=== PATIENT | male | born 1985 | race American Indian/Alaskan Native ===

== ENCOUNTER 2017-03-09 16:18 | Emergency (ER) | payer OTHER ==
[2017-03-09] MEDS ORDERED: MARCAINE 0.5% INFILTRATI ONE ×2 (16:34→16:37)
[2017-03-09] MEDS ORDERED: NACL 0.9% IR ONE (16:36)
[2017-03-09] MEDS ORDERED: TRIPLE ANTIBIOTIC TP ONE (16:37)
[2017-03-09 16:38] VITALS: BP 121/76
[2017-03-09] MEDS ORDERED: BOOSTRIX IM ONE (16:40)
--- NOTE | 2017-03-09 16:44 | Emergency Department Report ---
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 PT states he needs TD vaccine. - ROS Review of Systems: + finger pain 06/16 - Exam Vital Signs: Vital Signs 03/09/17 16:34 Temperature 98.4 F Pulse Rate 94 H Respiratory 20 Rate Blood Pressure 121/76 O2 Sat by Pulse 98 Oximetry Physical Exam: L 5th finger distal tip with active bleeding MSE screening note: Focused history and physical exam performed. Due to findings the following was ordered: meds, xr 03/09/17 1709 L 5th finger digital block performed. 4mls of marcaine 0.5% used. ED Disposition for MSE Condition: Stable
--- NOTE | 2017-03-09 17:27 | Emergency Department Report ---
Upper Extremity - HPI Chief Complaint: Extremity Injury, Upper Stated Complaint: FINGER LAC Time Seen by Provider: 03/09/17 16:32 Upper Extremity: Left Little Finger (nail/skin avulsion distal pinky left) Occurred When: Today Mechanism: Hit with Object, Crush Severity: mild Symptoms: Yes Pain with Movement, Yes Deformity (distal nail amputated), Yes Laceration or Abrasion (distal left pinky nail amputated off), No Limited Range of Movement, No Numbness, No Weakness, No Swelling, No Bruising/Ecchymosis Other History: 31-year-old male past medical history none presents with complaint of injury to left distal finger tip pinky finger. Patient states that he was working a fatemeh at work today and fatemeh hit his finger hard lacerating the tip of his finger. Denies any other injuries. Patient unaware of tetanus status. Visible laceration to left distal fingertip, finger nail has been avulsed. oozing blood currently from lac site ED Review of Systems ROS: Stated complaint: FINGER LAC Other details as noted in HPI Constitutional: denies: chills, fever Eyes: denies: eye pain, eye discharge, vision change ENT: denies: ear pain, throat pain Respiratory: denies: cough, shortness of breath, wheezing Cardiovascular: denies: chest pain, palpitations Endocrine: no symptoms reported Gastrointestinal: denies: abdominal pain, nausea, diarrhea Genitourinary: denies: urgency, dysuria Musculoskeletal: denies: back pain, joint swelling, arthralgia Skin: denies: rash, lesions Neurological: denies: headache, weakness, paresthesias Psychiatric: denies: anxiety, depression Hematological/Lymphatic: denies: easy bleeding, easy bruising ED Past Medical Hx - Past Medical History Previous Medical History?: No - Surgical History Past Surgical History?: No - Social History Smoking Status: Current Every Day Smoker Substance Use Type: Alcohol - Medications Home Medications: Home Medications Medication Instructions Recorded Confirmed Last Taken Type Cephalexin [Keflex] 500 mg PO Q12HR #20 cap 03/09/17 Unknown Rx HYDROcodone/APAP 5-325 [[place] 1 each PO Q6HR PRN #15 tablet 03/09/17 Unknown Rx 5/325] Naproxen [Naprosyn TAB] 500 mg PO BID PRN #30 tablet 03/09/17 Unknown Rx Upper Extremity Exam - Exam General: Vital signs noted. No distress. Alert and acting appropriately. Head and Torso: No HEENT Abnormality, No Neck Tenderness, No Chest/Lungs Abnormality, No Abdominal Tenderness, No Back Tenderness Shoulder Exam: Yes Normal Range of Motion in Shoulder, No Shoulder Tenderness, No Clavicle Tenderness, No Shoulder Deformity, No AC Joint Tenderness Arm Exam: No Arm/Humerus Tenderness, No Arm Deformity Elbow: No Elbow Tenderness, No Normal Range of Motion in Elbow, No Elbow Deformity Forearm: No Forearm Tenderness, No Forearm Deformity, No Pain with Pronation, No Pain with Supination Wrist: Yes Normal ROM in Wrist, No Wrist Tenderness, No Wrist Deformity, No Snuffbox Tenderness, No Pain with Axial Thumb Compression Hand: Yes Digit Tenderness (distal left pinky), Yes Normal ROM in Digit(s), No Hand Tenderness, No Hand Deformity, No Digit(s) Deformity, No Tendon Dysfunction CMS Exam: Yes Normal Distal Pulses (cap refill less than 1 second), Yes Normal Capillary Refill, Yes Normal Distal Sensation (pt has full sesnation distal fingertip), No Broken Skin Hand L/R Front: 1 - area of avulsed skin here Hand L/R Back: 1 - avulsion here ED Course Vital Signs 03/09/17 16:34 Temperature 98.4 F Pulse Rate 94 H Respiratory 20 Rate Blood Pressure 121/76 O2 Sat by Pulse 98 Oximetry ED Medical Decision Making - Medical Decision Making A/P: Distal tuft fracture, distal fingernail avulsion, partial distal fingertip amputation, fingertip laceration, fingertip crush 1 -patient given 2 g of Ancef, will discharge patient with course of Keflex 2-[place] for pain control, naproxen when necessary, patient educated on acute wound care 3-site of laceration wrapped with Xeroform gauze. 48-72 hours wound check. 4-I discussed case with the ED attending and also the on-call orthopedic attending Dr. Arroyo. Patient to follow-up in office this week for orthopedic hand consultation. I advised patient that if he experiences worsening pain or persistent bleeding any pus drainage from site or foul odor from site or fever or chills to return to the ED immediately 5- distal fingertip cleaned with iodoform gauze, washed with saline, wrapped with Xeroform gauze and then gauze Cyndi then distal fingertip splint. Critical care attestation.: If time is entered above; I have spent that time in minutes in the direct care of this critically ill patient, excluding procedure time. ED Disposition Clinical Impression: Fingertip avulsion Qualifiers: Encounter type: initial encounter Qualified Code(s): S61.209A - Unspecified open wound of unspecified finger without damage to nail, initial encounter Nail avulsion, finger Qualifiers: Encounter type: initial encounter Qualified Code(s): S61.309A - Unspecified open wound of unspecified finger with damage to nail, initial encounter Fracture of finger of left hand Qualifiers: Encounter type: initial encounter Finger: little finger Fracture type: open Phalanx: distal Fracture alignment: displaced Qualified Code(s): S62.637B - Displaced fracture of distal phalanx of left little finger, initial encounter for open fracture Disposition: - TO HOME OR SELFCARE Is pt being admited?: No Does the pt Need Aspirin: No Condition: Stable Instructions: Laceration (ED), Finger Fracture (ED), Acute Wound Care (ED), Finger Laceration (ED) Additional Instructions: Patient to follow-up with Dr. Arroyo this upcoming or Wednesday, 03/11 or 03/12 Prescriptions: Cephalexin [Keflex] 500 mg PO Q12HR #20 cap HYDROcodone/APAP 5-325 [[place] 5/325] 1 each PO Q6HR PRN #15 tablet PRN Reason: Pain Naproxen [Naprosyn TAB] 500 mg PO BID PRN #30 tablet PRN Reason: Pain Referrals: PRIMARY MD DICKSON [Primary Care Provider] - 3-5 Days [facility] [Provider Group] - 3-5 Days DORIAN ARROYO MD [Staff Physician] - 3-5 Days Forms: Work/School Release Form(ED) Time of Disposition: 19:12
[2017-03-09] MEDS ORDERED: ceFAZolin 2 GM in NACL 0.9% 100 ML IV ONE (18:00)
--- NOTE | 2017-03-09 18:12 | XRay Report ---
FINAL REPORT EXAM: XR FINGER(S) 2+V LT HISTORY: crush injury 5th finger TECHNIQUE: Left 5th finger three views PRIORS: None. FINDINGS: There is comminuted acute traumatic fracture of the tuft distal phalanx of the 5th digit with displaced bony fragments present. There is soft tissue defect. No metallic radiopaque foreign bodies are identified. Joint spaces are within normal limits. No additional acute bony findings. IMPRESSION: Comminuted fracture tuft distal phalanx of the 5th digit with soft tissue defect
== END 2017-03-09 20:00 | disposition home or self-care (01) ==
LOC: ED 16:18
DX: S62.637B Displaced fracture of distal phalanx of left little finger, initial encounter for open fracture (principal); S61.307A Unspecified open wound of left little finger with damage to nail, initial encounter; F17.200 Nicotine dependence, unspecified, uncomplicated; W22.8XXA Striking against or struck by other objects, initial encounter; Y93.9 Activity, unspecified; Y99.9 Unspecified external cause status; Y92.89 Other specified places as the place of occurrence of the external cause
CPT/HCPCS: 29130; 73140; 90471; 90715; 96365; 99283; J0690; A6250

== ENCOUNTER 2018-07-25 12:29 | Emergency (ER) | payer BC, OTHER ==
--- NOTE | 2018-07-25 12:36 | Emergency Department Report ---
Blank Doc - Documentation Documentation: This is a 53-year-old male that presents with dysuria. Denies any penile disc harge. Concerned about STD. Denies any other complaints. This initial assessment diagnostic orders/clinical plan/treatment(s) is/are subject to change based on patient's health status, clinical progression and re- assessment by fellow clinical providers in the ED. Further treatment and workup at subsequent clinical providers discretion. Patient/guardians urged not to elope from ED s their condition may be serious if not clinically assessed and managed. Initial orders include: 1-Patient sent to [facility] for further evaluation and treatment 2- UA
[2018-07-25 12:38] VITALS: BP 125/75
[2018-07-25 13:37] LABS: Bilirubin,Urine NEG (Negative); Blood,Urine NEG (Negative); Color,Urine Yellow (Yellow); Mucus,Urine FEW /HPF; Urobilinogen,Urine < 2.0 mg/dL (<2.0)
--- NOTE | 2018-07-25 13:44 | Emergency Department Report ---
Chief Complaint: Urogenital-Male Stated Complaint: POSS UTI/STD Time Seen by Provider: 07/25/18 12:32 - HPI History of Present Illness: This is a 33-year-old male that present with dysuria and is resulting for STD check up. Patient denies any other complaints. Denies any testicular pain or swelling. Denies any abdominal pain, chest pain, shortness of breathe, fever, or chills. Denies any back pain. Denies any allergies or PMH. Denies penile discharge. - Exam Vital Signs: Vital Signs 07/25/18 12:36 Temperature 98.1 F Pulse Rate 83 Respiratory 16 Rate Blood Pressure 125/75 O2 Sat by Pulse 100 Oximetry Physical Exam: No abdominal tenderness. No CVA tenderness. MSE screening note: Focused history and physical exam performed. Due to findings the following was ordered: ED Medical Decision Making - Medical Decision Making 33-year-old male that presents with STD check up. UA is unremarkable. Patient was approached by registration for copay due to no medical emergency and patient refused. Patient was given several referrals to see seek medical attention for this problem. At the time of discharge, the patient does not seem toxic or ill in appearance. Agrees to the ED plan of care and discharge instructions. ED Disposition for MSE Clinical Impression: Possible exposure to STD Disposition: Z- MED SCREENING EXAM-LEFT Is pt being admited?: No Does the pt Need Aspirin: No Condition: Stable Instructions: Safe Sex (ED) Additional Instructions: Follow-up with primary care doctor, formerly named [facility], or [facility] in 3-5 days or if symptoms worsen and continue return to the ED as soon as possible. Referrals: LIBERTAD HILTON [Primary Care Provider] - 3-5 Days EBONY FORMAN MD [Referring] - 3-5 Days JAIRO MARIE MD [Staff Physician] - 3-5 Days [facility] [Outside] - 3-5 Days [facility] [Outside] - 3-5 Days
== END 2018-07-25 14:09 | disposition left against medical advice (07) ==
LOC: ED 12:29
DX: Z20.2 Contact with and (suspected) exposure to infections with a predominantly sexual mode of transmission (principal)
CPT/HCPCS: 81001; 99283

== ENCOUNTER 2021-05-28 15:59 | Emergency (ER) | payer OTHER ==
[2021-05-28 18:56] LABS: Alanine Aminotransferase 20 units/L (7-56); Albumin 4.7 g/dL (3.9-5); BUN/Creatinine Ratio 14; Blood Urea Nitrogen 14 mg/dL (9-20); Calcium 10.1 mg/dL (8.4-10.2); Hemolysis Index 39
[2021-05-28] MEDS ORDERED: LIDOCAINE-MPF (1%) 10 MG/1 ML VIAL 5 ML INFILTRATI ONE (19:24)
[2021-05-28 19:28] LABS: Basophils # (Auto) 0.1 K/mm3 (0.0-0.1); Basophils % (Auto) 0.9 % (0.0-1.8); Eosinophils # (Auto) 0.2 K/mm3 (0.0-0.4); Eosinophils % (Auto) 2.8 % (0.0-4.3); Hematocrit 46.6 % (35.5-45.6); Hemoglobin 15.3 gm/dl (11.8-15.2); Lymphocytes # (Auto) 2.6 K/mm3 (1.2-5.4); Lymphocytes % (Auto) 38.5 % (13.4-35.0); Mean Corpuscular HGB Conc 33 % (32-34); Mean Corpuscular Volume 96 fl (84-94); Monocytes # (Auto) 0.6 K/mm3 (0.0-0.8); Monocytes % (Auto) 9.3 % (0.0-7.3); Platelet Count 320 K/mm3 (140-440); Red Blood Count 4.85 M/mm3 (3.65-5.03)
--- NOTE | 2021-05-28 19:39 | Emergency Department Report ---
ED General Adult HPI - General Chief complaint: Urogenital-Male Stated complaint: UNTREATED KIDNEY INFECTION Time Seen by Provider: 05/28/21 19:04 Source: patient Mode of arrival: Ambulatory Limitations: No Limitations - History of Present Illness Initial comments: 36-year-old -[place] male patient presents with complaints of dark urine and penile discharge. He states his urine appears to be brown in color about 2 months ago and that the symptom lasted about 1 month and resolved on its own. He reports yesterday he developed penile discharge and again noted his urine to appear brown again. He denies any dysuria/hematuria/urinary frequency, penile/testicular pain/swelling. Skin lesions, abdominal pain, flank pain, fever/chills/sweats, or painful swollen joints. No past medical history per patient. He is not currently following with a PCP. Severity scale (0 -10): 10 - Related Data Previous Rx's Medication Instructions Recorded Last Taken Type HYDROcodone/APAP 5-325 [[place] 1 each PO Q6HR PRN #15 tablet 03/09/17 Unknown Rx 5/325] Naproxen [Naprosyn TAB] 500 mg PO BID PRN #30 tablet 03/09/17 Unknown Rx cephALEXin [Keflex] 500 mg PO Q12HR #20 cap 03/09/17 Unknown Rx Doxycycline Monohydrate 100 mg PO BID 7 Days #14 capsule 05/28/21 Unknown Rx [Doxycycline Monohydrate CAP] metroNIDAZOLE [Flagyl] 2,000 mg PO ONCE 1 Days #4 tab 05/28/21 Unknown Rx Allergies Allergy/AdvReac Type Severity Reaction Status Date / Time No Known Allergies Allergy Unverified 03/09/17 16:34 ED Review of Systems ROS: Stated complaint: UNTREATED KIDNEY INFECTION Other details as noted in HPI Constitutional: denies: chills, diaphoresis, fever, malaise, weakness Respiratory: denies: cough, shortness of breath Cardiovascular: denies: chest pain Gastrointestinal: denies: abdominal pain, nausea, vomiting Genitourinary: discharge. denies: urgency, dysuria, frequency, hematuria, testicular pain, testicular mass Musculoskeletal: denies: back pain Skin: denies: rash, lesions, change in color Neurological: denies: headache Hematological/Lymphatic: denies: swollen glands ED Past Medical Hx - Surgical History Additional Surgical History: FX ankle - Social History Smoking Status: Current Every Day Smoker Substance Use Type: Alcohol - Medications Home Medications: Home Medications Medication Instructions Recorded Confirmed Last Taken Type HYDROcodone/APAP 5-325 [[place] 1 each PO Q6HR PRN #15 tablet 03/09/17 Unknown Rx 5/325] Naproxen [Naprosyn TAB] 500 mg PO BID PRN #30 tablet 03/09/17 Unknown Rx cephALEXin [Keflex] 500 mg PO Q12HR #20 cap 03/09/17 Unknown Rx Doxycycline Monohydrate 100 mg PO BID 7 Days #14 capsule 05/28/21 Unknown Rx [Doxycycline Monohydrate CAP] metroNIDAZOLE [Flagyl] 2,000 mg PO ONCE 1 Days #4 tab 05/28/21 Unknown Rx ED Physical Exam - General Limitations: No Limitations General appearance: alert, in no apparent distress - Head Head exam: Present: atraumatic, normocephalic - Eye Eye exam: Present: normal appearance - Neck Neck exam: Present: normal inspection - Respiratory Respiratory exam: Absent: respiratory distress - Cardiovascular Cardiovascular Exam: Present: regular rate - GI/Abdominal GI/Abdominal exam: Present: soft. Absent: distended, tenderness, guarding, rebound, rigid - Back Exam Back exam: Absent: CVA tenderness (R), CVA tenderness (L) - Neurological Exam Neurological exam: Present: alert, oriented X3, normal gait - Psychiatric Psychiatric exam: Present: normal affect, normal mood - Skin Skin exam: Present: warm, dry, intact, normal color. Absent: rash ED Course Vital Signs 05/28/21 16:46 Temperature 98.2 F Pulse Rate 82 Respiratory 18 Rate Blood Pressure 127/90 [Right] O2 Sat by Pulse 99 Oximetry ED Medical Decision Making - Lab Data Result diagrams: 05/28/21 18:19 05/28/21 18:19 Lab Results 05/28/21 05/28/21 05/28/21 Range/Units 18:19 18:19 18:44 WBC 6.6 (4.5-11.0) K/mm3 RBC 4.85 (3.65-5.03) M/mm3 Hgb 15.3 H (11.8-15.2) gm/dl Hct 46.6 H (35.5-45.6) % MCV 96 H (84-94) fl MCH 32 (28-32) pg MCHC 33 (32-34) % RDW 14.0 (13.2-15.2) % Plt Count 320 (140-440) K/mm3 Lymph % (Auto) 38.5 H (13.4-35.0) % Gray % (Auto) 9.3 H (0.0-7.3) % Eos % (Auto) 2.8 (0.0-4.3) % Baso % (Auto) 0.9 (0.0-1.8) % Lymph # (Auto) 2.6 (1.2-5.4) K/mm3 Gray # (Auto) 0.6 (0.0-0.8) K/mm3 Eos # (Auto) 0.2 (0.0-0.4) K/mm3 Baso # (Auto) 0.1 (0.0-0.1) K/mm3 Seg Neutrophils % 48.5 (40.0-70.0) % Seg Neutrophils # 3.2 (1.8-7.7) K/mm3 Sodium 139 (137-145) mmol/L Potassium 4.6 (3.6-5.0) mmol/L Chloride 102.4 (98-107) mmol/L Carbon Dioxide 23 (22-30) mmol/L Anion Gap 18 mmol/L BUN 14 (9-20) mg/dL Creatinine 1.0 (0.8-1.3) mg/dL Estimated GFR > 60 ml/min BUN/Creatinine Ratio 14 % Glucose 138 H (75-100) mg/dL Calcium 10.1 (8.4-10.2) mg/dL Total Bilirubin 0.40 (0.1-1.2) mg/dL AST 25 (5-40) units/L ALT 20 (7-56) units/L Alkaline Phosphatase 78 (35-129) units/L Total Protein 7.9 (6.3-8.2) g/dL Albumin 4.7 (3.9-5) g/dL Albumin/Globulin Ratio 1.5 % Urine Color Yellow (Yellow) Urine Turbidity Clear (Clear) Urine pH 6.0 (5.0-7.0) Ur Specific [place] 1.025 (1.003-1.030) Urine Protein <15 mg/dl (Negative) mg/dL Urine Glucose (UA) Neg (Negative) mg/dL Urine Ketones Neg (Negative) mg/dL Urine Blood Neg (Negative) Urine Nitrite Neg (Negative) Urine Bilirubin Neg (Negative) Urine Urobilinogen < 2.0 (<2.0) mg/dL Ur Leukocyte Esterase Mod (Negative) Urine WBC (Auto) 94.0 H (0.0-6.0) /HPF Urine RBC (Auto) 7.0 (0.0-6.0) /HPF Urine Mucus 1+ /HPF - Medical Decision Making 36-year-old -[place] male patient presents with complaints of dark urine and penile discharge. He states his urine appears to be brown in color about 2 months ago and that the symptom lasted about 1 month and resolved on its own. He reports yesterday he developed penile discharge and again noted his urine to appear brown again. He denies any dysuria/hematuria/urinary frequency, penile/testicular pain/swelling. Skin lesions, abdominal pain, flank pain, fever/chills/sweats, or painful swollen joints. No past medical history per patient. He is not currently following with a PCP. No acute abnormalities noted on CBC or CMP. Kidney function is normal. UA shows elevated WBCs. Empiric treatment given for gonorrhea via Rocephin. Patient to discharge home with treatment for trichomonas and chlamydia. Patient informed to refrain from sexual activity for 2 to 3 weeks and to follow-up with either his primary care doctor, an urgent care, or the health department for further STI testing. Patient also informed to have his partner get tested and treated. He is otherwise well-appearing, his vitals are within normal limits, he is stable for discharge home. Strict return precautions were discussed in detail with patient who verbalizes understanding Critical care attestation.: If time is entered above; I have spent that time in minutes in the direct care of this critically ill patient, excluding procedure time. ED Disposition Clinical Impression: Penile discharge Disposition: 01 HOME / SELF CARE / HOMELESS Is pt being admited?: No Condition: Stable Instructions: Urethritis, Adult Additional Instructions: Please follow-up with the health department or primary care provider for further STD testing. Please refrain from any sexual intercourse for 2 to 3 weeks and ensure that your sexual partner is tested and treated Prescriptions: Doxycycline Monohydrate [Doxycycline Monohydrate CAP] 100 mg PO BID 7 Days #14 capsule metroNIDAZOLE [Flagyl] 2,000 mg PO ONCE 1 Days #4 tab Referrals: [facility] [Outside] - 3-5 Days [facility] [Provider Group] - 3-5 Days Forms: Work/School Release Form(ED)
[2021-05-28 20:21] LABS: Bilirubin,Urine NEG (Negative); Blood,Urine NEG (Negative); Color,Urine Yellow (Yellow); Mucus,Urine 1+ /HPF; Protein,Urine <15 mg/dL mg/dL (Negative); Urobilinogen,Urine < 2.0 mg/dL (<2.0)
[2021-05-28 21:25] VITALS: BP 117/83
== END 2021-05-28 21:00 | disposition home or self-care (01) ==
LOC: ED 15:59
DX: R36.9 Urethral discharge, unspecified (principal); F17.200 Nicotine dependence, unspecified, uncomplicated; F10.20 Alcohol dependence, uncomplicated
CPT/HCPCS: 36415; 80053; 81001; 85025; 87086; 96372; 99283; J0696; J3490